=== PATIENT | male | born 1970 | race Caucasian/White ===

== ENCOUNTER 2021-01-27 09:54 | Emergency (ER) | payer BC ==
[~2021-01-27] VITALS: Ht 175.3 cm; Wt 81.7 kg
[2021-01-27 10:11] VITALS: BP 132/82
== END 2021-01-27 11:53 | disposition left against medical advice (07) ==
LOC: M.ERS 09:54
DX: M25.531 Pain in right wrist (principal); Z53.21 Procedure and treatment not carried out due to patient leaving prior to being seen by health care provider